=== PATIENT | female | born 1940 | race Caucasian/White ===

== ENCOUNTER → 2017-05-04 | Outpatient (CLI) | payer OTHER ==
[~2017-05-04] MED LIST: ASPIR 8181 MG PO; CALCIUM 600 +1 EAC1 PO; CENTRUM SILVER1 EAC4 PO; CO Q-10100 MG PO; ELMIRON 100 MG100 M1 PO; ESCITALOPRAM OX10 MG PO; FISH OIL 1,001000 M2 PO; GLUCOSAMINE CH1 EAC2 PO; IRON325 PO; LIPITOR 20 MG T20 M1 PO; PAROXETINE HCL20 MG PO; PROLOPRIM100 MG PO; RANITIDINE HCL300 MG PO; TOPROL XL25 MG PO; VITAMIN D1000 UNI1 PO
== END ==
LOC: RAD 11:10
DX: R06.02 Shortness of breath (principal); R79.1 Abnormal coagulation profile

== ENCOUNTER → 2017-05-22 | Outpatient (CLI) | payer OTHER | LOC: CAT 11:36 | DX: C74.90 Malignant neoplasm of unspecified part of unspecified adrenal gland (principal); D09.3 Carcinoma in situ of thyroid and other endocrine glands ==

== ENCOUNTER → 2017-12-29 | Outpatient (CLI) | payer OTHER ==
--- NOTE | ~2017-12-29 | EXE ---
[facility] [place] [address] STRESS ECHOCARDIOGRAM Name: AMA ALY Room #: REG [facility]#: [id number] Admission: 12/29/17 Attend Phys: Lukasz Flores MD Discharge: Date of : 38 Date of Service: 12/29/17 1134 Report #: [id number] THIS REPORT FOR: //name// APPROVED REPORT Study performed: 12/29/2017 10:20:34 Exam: Stress Echocardiogram Indication: Hypertension, Dyspnea Patient Location: Out-Patient Stress Nurse: Marybeth Aragon RN Status: routine Ht: 5 ft 2 in Procedure The patient underwent an Exercise Stress Test using the Jesus Manuel Protocol. Blood pressure, heart rate, and EKG were monitored. An Echocardiogram was performed by accelerator technician in four stages in quad fashion. At peak stress, four selected images were obtained and placed side by side with resting images for comparison. Stress Test Details Stress Test: Exercise stress testing was performed using a Jesus Manuel protocol. HR Resting HR: 58 bpm Max Heart Rate (APMHR): 142 bpm Max HR Achieved: 113 bpm Target HR (85% APMHR): 120 bpm % of APMHR: 79 Recovery HR: 57 bpm HR response to stress: Normal HR response to stress BP Resting BP: 144/78 mmHg Max BP: 212/78 mmHg Recovery BP: 190/78 mmHg ECG Clinical Reason for Termination: Maximal effort, Dyspnea Stress Symptoms: Dyspnea Exercise duration: 2 min sec Highest Stage Achieved: Stage 1: 1.7 mph at 10% grade. Exercise capacity: 4.6 METs [facility] [address] [place] [address] STRESS ECHOCARDIOGRAM Name: MAA ALY Room #: REG [facility]#: [id number] Admission: 12/29/17 Attend Phys: Lukasz Flores MD Discharge: Date of : 38 Date of Service: 12/29/17 1134 Report #: [id number] Overall Exercise Capacity for Age: Poor Pre-Stress Echo The resting Echocardiogram showed normal left ventricular contractility with an estimated Ejection Fraction of about 55-60%. Post-Stress Echo The stress Echocardiogram showed left ventricular contractility with an estimated Ejection Fraction of about 55-60%. Conclusion Clinical Response: Equivocal Exercise Capacity: Below Average Stress ECG Response: Equivocal Stress Echo Images: Equivocal No prior study available for comparison. Other Information Study Quality: Good <ELECTRONICALLY SIGNED> By: Adam Paz MD, FACC 12/29/17 1134 113 113 Adam Paz MD, FACC /INF
== END ==
LOC: CV 10:02
DX: R00.1 Bradycardia, unspecified (principal); R00.2 Palpitations

== ENCOUNTER 2018-01-28 06:41 | Inpatient (IN) | payer OTHER ==
[~2018-01-28] VITALS: Ht 157.5 cm; Wt 62.8 kg
--- NOTE | ~2018-01-28 | HC ---
[facility] [place] [address] CONSULTATION Name: AMA ALY Room #: 204-P [facility] IN ..#: [id number] Admission: 01/29/18 Attend Phys: Adam Paz MD, Discharge: Date of : 38 Report #: [id number] THIS REPORT FOR: //name// CC: Lukasz Paz DATE OF SERVICE: 01/29/2018 CARDIOLOGY CONSULTATION REASON FOR CONSULTATION: Symptomatic bradycardia. HISTORY OF PRESENT ILLNESS: The patient is a 77-year-old female who recently had an abnormal nuclear stress test on 01/18/2018 showing an EF of 72% and evidence of anterior wall ischemia. She underwent cardiac catheterization on 01/28/2018 and had a Resolute drug-eluting stent placed to the LAD. This procedure was without complications. However, she was noted to have frequent episodes of bradycardia down into the 30s and 40s and episodes of sinus arrest. Therefore, she has been kept in the hospital for monitoring of her heart rate and her beta em therapy has been held. She currently denies chest pain. She has some mild fatigue and shortness of breath. She denies PND or orthopnea. She denies presyncope or syncope. REVIEW OF SYSTEMS: Twelve-point review of systems was otherwise normal. PAST MEDICAL HISTORY: 1. Coronary artery disease, status post drug-eluting stent to the LAD on 01/28/2018. 2. Carotid disease. 3. Diabetes. 4. Hypertension. 5. Hyperlipidemia. 6. Chronic renal insufficiency. 7. Subclavian stenosis. FAMILY HISTORY: Noncontributory. SOCIAL HISTORY: Does not smoke. ALLERGIES: INCLUDE MORPHINE, CODEINE, ERYTHROMYCIN, AMITRIPTYLINE AND DESVENLAFAXINE. CURRENT MEDICATIONS: Include pantoprazole, Pentosan, Plavix, atorvastatin, aspirin, insulin, calcium gluconate, albuterol, Ambien, Zofran, Paxil. PHYSICAL EXAMINATION: [facility] [address] [place] [address] CONSULTATION Name: AMA ALY Room #: 204-P [facility]#: [id number] Admission: 01/29/18 Attend Phys: Adam Paz MD, Discharge: Date of : 39 Report #: [id number] VITAL SIGNS: Temperature is 36.9, pulse 47, respirations 16, blood pressure 106/38, sats are 97%. GENERAL: In no acute distress. HEENT: Oropharynx clear. NECK: Supple, no thyromegaly. HEART: Regular rate and rhythm. LUNGS: Clear to auscultation bilaterally. ABDOMEN: Soft, nontender, nondistended with no hepatosplenomegaly. EXTREMITIES: No clubbing, cyanosis or edema. LABORATORY DATA: Hemoglobin 8.9, white count 7.9, platelets 128. Sodium 143, potassium 6.8, creatinine 2.1. Repeat potassium was 4.9. ASSESSMENT: 1. Sick sinus syndrome. 2. Symptomatic bradycardia. 3. Sinus arrest. In summary, the patient is a 77-year-old with history of coronary artery disease, status post recent stenting and evidence of severe sick sinus syndrome with symptomatic bradycardia. We will monitor her heart rhythm over the weekend off beta blockers and if this does not improve, I will recommend dual chamber pacemaker implantation. I have discussed the details of the procedure including the risks, which include, but not limited to bleeding, infection, vascular damage, cardiac perforation, pneumothorax. She understands these risks and is willing to proceed. By: [id number] [id number] Chaitanya Jenkins MD /nt
--- NOTE | ~2018-01-28 | CATHLAB ---
[facility] [place] [address] INVASIVE PROCEDURE REPORT Name: AMA ALY Room #: 204-P [facility] IN .R.#: [id number] Admission: 01/28/18 Attend Phys: Adam Paz, Discharge: Date of : 38 Date of Service: 01/29/18 1141 Report #: [id number] THIS REPORT FOR: //name// APPROVED REPORT Study performed: 01/28/2018 07:25:40 Patient Details Patient Status: Out-Patient Room #: The patient is a 77 year-old female Event Personnel Adam Paz Commutator Tester, Jaimie Fulton RN RN, True Bahena RT(R)(CV) Kraig Au David Monitor Procedures Performed Right and Left Heart Cath w/or w/o Coronarie [id number] [facility] [address] Place w/wo Plasty Single LAD [id number] Indication Chest pain Procedure Narrative The Right Groin^ was infiltrated with 1% Lidocaine subcutaneous anesthesia. A Right Heart Catheterization was performed with a 7 Fr. [place] catheter and pressure were recorded. Cardiac outputs were obtained by the Thermal Dilution method. A PINNACLE 6FR Sheath #[id number] sheath was inserted into the RFA^. Coronary angiography was performed using coronary diagnostic catheters. The right coronary system was accessed and visualized with a JR4 catheter. The left coronary system was accessed and visualized with a JL4 catheter. The left ventricle was accessed and visualized with a PIGTAIL catheter. Left ventricular/Aortic Valve gradient assessed via catheter pullback. Closure device was deployed with a 6 Fr MYNXGRIP 6/7F #[id number]. The patient tolerated the procedure well and there were no complications associated with the procedure. A hematoma occurred. Intraoperative Conscious Sedation Sedation start time: 8.41 Case end Time: 9.11 Fentanyl 75 mcg Versed 1 mg Fluoro Time: 6.42 minutes Dose: DAP 3432. cGycm2 404 mGy [facility] [address] [place] [address] INVASIVE PROCEDURE REPORT Name: AMA ALY Room #: 204-P [facility] IN ..#: [id number] Admission: 01/28/18 Attend Phys: Adam Paz, Discharge: Date of : 38 Date of Service: 01/29/18 1141 Report #: [id number] Contrast Type and Amount: Visipaque 60 ml Hemodynamics The right ventricular pressure is 65/18 mmHg. The pulmonary artery pressure is 81/6 mmHg with a mean of 25 mmHg. The mean pulmonary capillary wedge pressure is 33 mmHg. The aortic pressure is 164/55 mmHg with a mean of 93 mmHg. The left ventricular pressure is 151/14 mmHg with a mean of mmHg. The cardiac output using thermo method is 3.80 L/min. PCI Technique Lesion Percutaneous coronary intervention was performed on the proximal left anterior descending artery segment. A LAUNCHER 6FR EBU 3.5 #[id number] Guide Catheter was used to engage the ostium. A Luge Wire .014 x 182CM #[id number] Interventional Guidewire was used to cross the lesion. BALLOON DILATION A Balloon catheter Sprinter OTW 2.5 x 12 #[id number] was inserted and inflated up to 6.00atm for 12seconds. Additional Inflation: 6.00atm for 13seconds. Additional Inflation: 8.00atm for 15seconds. STENT DEPLOYMENT A drug-eluting stent RESOLUTE OTW 2.75 X 12 #[id number] was inserted and inflated up to 15.00atm for 34seconds. Additional Inflation: 16.00atm for 27seconds. Conclusion #1 successful PTCA stent proximal LAD 80-90% lesion to 0% placement of a 2.75 x 12 resolute drug-eluting stent postdilated 3.0 mm TERRY-3 flow no dissection #2 left main free of disease giving rise to LAD and circumflex #3 circumflex OM nondominant moderate distribution and eccentric 40-50% mid vessel lesion #4 dominant right coronary artery moderate caliber no occlusive disease #5 left renal artery with an eccentric 40% ostial lesion #6 right renal artery with mild irregularity #7 successful right heart catheterization with hemodynamics described above Recommendations and plan will need some diuresis. We'll continue dual antiplatelet therapy at least one year. Transfer to [facility] [address] [place] [address] INVASIVE PROCEDURE REPORT Name: AMA ALY Room #: 204-P [facility] IN M.R.#: [id number] Admission: 01/28/18 Attend Phys: Adam Paz, Discharge: Date of : 38 Date of Service: 01/29/18 1141 Report #: [id number] condition Mild bradycardia we will DC beta em and observe. <ELECTRONICALLY SIGNED> By: Adam Paz MD, FACC 01/29/18 114 114 40 Adam Paz MD, FACC /INF
--- NOTE | ~2018-01-28 | EKG ---
[address] [address] ELECTROCARDIOGRAM REPORT Name: AMA ALY Room #: 204- [facility] IN M.R.#: [id number] Admission: 01/29/18 Attend Phys: Adam Paz MD, Discharge: Date of : 39 Report #: [id number] THIS REPORT FOR: //name// [facility] Test Date: 2018-01-29 Test Time: 06:56:01 Pat Name: AMA ALY Department: Room: 204 Gender: F Statistician Applied: BILLY : 1940 Requested By: Adam Paz Order Number: [id number] MD: Kiran Terry Measurements Intervals [place] Rate: 66 P: 54 FL: 163 QRS: 12 QRSD: 89 T: 52 QT: 420 QTc: 441 Interpretive Statements Sinus rhythm Atrial premature complex No previous ECG available for comparison Electronically Signed On 01-29-2018 12:59:13 CDT by Kiran Terry [email or web address] <ELECTRONICALLY SIGNED> By: Kiran Terry MD, FACC 01/29/18 1259 0656 0656 Kiran Terry MD, FACC /EPI
--- NOTE | ~2018-01-28 | D ---
[facility] [place] [address] DISCHARGE SUMMARY Name: AMA ALY Room #: 204-P [facility] IN M.R.#: [id number] Admission: 01/29/18 Attend Phys: Adam Paz MD, Discharge: Date of : 39 Report #: [id number] THIS REPORT FOR: //name// CC: Lukasz Flores MD [facility] COURSE: The patient is a 77-year-old female who was initially admitted for an abnormal stress test and anginal symptoms. Went to the catheterization lab where she underwent successful PTCA stent of a 90% proximal LAD lesion. A 2.75 x 12 Resolute drug-eluting stent was placed, postdilated 3.0 mm. She did well, but then subsequently had significant bradydysrhythmias and periods of significant pauses 4-5 seconds, although was not syncopal with this, but somewhat lightheaded. There had been some occurrence of this, which she had not related prior to the stent placement. Had electrophysiology service see her. Dr. Jenkins placed a dual chamber pacemaker in her without event. This is functioning appropriately today. Chest x-ray is unremarkable. She feels well. She is up and ambulating. She does have her instructions regarding the pacemaker. She will need dual antiplatelet therapy for 6-12 months, we will evaluate. She will restart her Edarbyclor, which we needed for her refractory hypertension, Bystolic, atorvastatin 20, Colace, Protonix, Paxil. No lifting with her upper extremity as instructed by EP. No lying in tub, Jacuzzi or briceno for a week. No MRI or dental work for 3 months. Her Edarbyclor dose is 40/12.5. DISCHARGE DIAGNOSES: 1. Coronary artery disease, successful percutaneous transluminal coronary angioplasty stent of proximal left anterior descending, subclavian stenosis, hypertension, hypercholesterolemia, chronic kidney disease, intermittent heart block with bradydysrhythmia, status post permanent pacemaker at this visit. 2. Sleep apnea. 3. Mild pulmonary hypertension. Thank you for asking me to assist in the care of this patient. By: 0946 1149 Adam Paz MD, FACC /nt
--- NOTE | ~2018-01-28 | P ---
[facility] [place] [address] PROCEDURE REPORT Name: AMA ALY Room #: 204-P [facility] IN M.R.#: [id number] Admission: 01/29/18 Attend Phys: Adam Paz MD, Discharge: Date of : 39 Report #: [id number] THIS REPORT FOR: //name// CC: Lukasz Paz DATE OF SERVICE: 02/01/2018 PACEMAKER IMPLANTATION PREOPERATIVE DIAGNOSES: 1. Sick sinus syndrome. 2. Symptomatic bradycardia. PROCEDURE PERFORMED: Dual chamber pacemaker implantation. HISTORY: The patient is a 77-year-old female who came in for an elective coronary intervention, status post stent placement. Preprocedure, she was noted to have sinus bradycardia in the 30s and 40s. Her beta blockers were stopped over the weekend and she continued to have sinus bradycardia as well as sinus arrest with 5- to 6-second pauses. She requires beta em therapy for her coronary artery disease and therefore is here for dual chamber pacemaker implantation. ANESTHESIA: The patient underwent MAC anesthesia with no anesthesia related complications. DESCRIPTION OF PROCEDURE: The patient underwent informed consent. Discussed the details of the procedure including the risks, which include, but not limited to bleeding, infection, vascular damage, cardiac perforation, pneumothorax. She received IV vancomycin prior to the procedure and underwent a venogram showing patency of left axillary vein. Next, I injected lidocaine below the level of left clavicle. Incision was made, pocket was created over the prepectoral fascia and access was obtained twice to left axillary vein using the extrathoracic approach with sheaths positioned using the modified Seldinger technique. Under fluoroscopy, I placed a lead into the right ventricular apex and right atrial appendage both with adequate pacing and sensing thresholds. The leads were sutured to the prepectoral fascia and then the device was connected. The pocket was irrigated with vancomycin. The pocket was closed in 3 layers. Surgical glue was placed to the outer skin layer. The patient awoke neurologically hemodynamically intact. No complications and no significant bleeding. The pacemaker was programmed to the DDDR 60-130 mode. The pacemaker was a [employer] model #YI6904, serial #[id number]. The atrial lead was a [employer], model #2088TC, 46 cm, serial #[id number]. This lead demonstrated a P-wave of 2.4 millivolts, pacing impedance of 540 ohms and a pacing threshold of 1 volt at 0.4 milliseconds. The RV lead was [employer] [facility] [address] [place] [address] PROCEDURE REPORT Name: AMA ALY Room #: 204-P [facility]#: [id number] Admission: 01/29/18 Attend Phys: Adam Paz MD, Discharge: Date of : 39 Report #: [id number] model #2088TC, 52 cm, serial #[id number] with a R-wave of greater than 12 millivolts, pacing impedance of 440 ohms and a pacing threshold of 0.5 volts at 0.4 milliseconds. CONCLUSIONS: 1. Successful dual-chamber pacemaker implantation. 2. Satisfactory atrial and ventricular pacing and sensing thresholds. By: 1629 0039 Chaitanya Jenkins MD /nt
--- NOTE | ~2018-01-28 | HC ---
[facility] [place] [address] CONSULTATION Name: AMA ALY Room #: 204-P [facility] IN M.R.#: [id number] Admission: 01/29/18 Attend Phys: Aadm Paz MD, Discharge: Date of : 39 Report #: [id number] THIS REPORT FOR: //name// CC: Lukasz Paz DATE OF SERVICE: 01/28/2018 REASON FOR CONSULTATION: Elevated creatinine. HISTORY OF PRESENT ILLNESS: The patient was seen and examined on , 01/28/2018. This is a late dictation. The patient is a 77-year-old with past medical history of hypertension, coronary artery disease. She was admitted yesterday for an elective catheterization and had an LAD stent. Her history started couple of weeks ago when she had abnormal nuclear scan. She was sent to Dr. Paz. Based on the nuclear scan finding, decision was made to proceed with the cardiac catheterization. Creatinine was elevated at 2.2. I was consulted to manage her chronic kidney disease. In terms of renal function, she tells me that she sees Dr. Lukasz Flores and was told that she has stage 3 chronic kidney disease, but she does not recall her exact values. She denies nonsteroidal anti-inflammatory medication. She has complicated past medical history including what was described as mixed connective tissue disorder back in the 2000 era. She was also diagnosed to have right adrenal mass and this was resected few years ago. She was told that this was a benign mass. PAST MEDICAL HISTORY: 1. Hypertension. 2. Coronary artery disease. 3. Ovarian cystectomy. 4. Questionable history of mixed connective tissue disorder. 5. Right adrenalectomy. 6. Ovarian cystectomy. 7. Appendectomy. 8. Recent cardiac catheterization. 9. Hypertension. 10. Chronic kidney disease. MEDICATIONS: Reviewed and reconciled with the patient. FAMILY HISTORY: Significant for hypertension. REVIEW OF SYSTEMS: GENERAL: No fever or chills. CARDIOVASCULAR: Occasional dyspnea on exertion. PULMONARY: No cough or hemoptysis. GASTROINTESTINAL: No nausea or vomiting. [facility] [address] [place] [address] CONSULTATION Name: AMA ALY Room #: 204-P [facility] IN M.R.#: [id number] Admission: 01/29/18 Attend Phys: Adam Paz MD, Discharge: Date of : 39 Report #: [id number] GENITOURINARY: No active urinary symptoms. MUSCULOSKELETAL: Occasional arthralgias and back pain. SKIN: No rash or ulcerations. SOCIAL HISTORY: She denies drug or alcohol abuse. PHYSICAL EXAMINATION: GENERAL: Alert, oriented. VITAL SIGNS: Blood pressure was marginally elevated at 170/80. She is afebrile. HEAD AND NECK: No jugular venous distention, no bruit, no thyromegaly. CHEST: Decreased air entry bilaterally. CARDIOVASCULAR: Regular, with no rub. ABDOMEN: Soft, nontender. LOWER EXTREMITIES: No edema. LABORATORY DATA: Laboratory values reviewed. Creatinine as of yesterday was elevated at 2.2. ASSESSMENT, IMPRESSION, PLAN: 1. Coronary artery disease, status post LAD stent. 2. Elevated creatinine with unknown baseline, likely chronic kidney disease. 3. Hypertension. 4. Remote history of right adrenalectomy. 5. Questionable history of mixed connective tissue disorder based on elevated PRINCE. 6. We need to obtain the patient's medical records from her primary care physician. This is to establish a baseline for her. 7. We will initiate the acute kidney injury, chronic kidney disease workup. 8. Elevate urine protein to creatinine ratio. 9. Ultrasound of both kidneys. 10. Keep on the IV fluid. 11. We will hold some of her medications for now. 12. Repeat labs in the morning. 13. Watch electrolytes. 14. Watch urine output. 15. We will continue to follow along. <ELECTRONICALLY SIGNED> By: Guera Magana MD 01/31/18 1521 0550 1051 Guera Magana MD /nt
--- NOTE | ~2018-01-28 | EKG ---
[address] [address] ELECTROCARDIOGRAM REPORT Name: AMA ALY Room #: 204- ADM IN M.R.#: [id number] Admission: 01/29/18 Attend Phys: Adam Paz MD, Discharge: Date of : 38 Report #: [id number] THIS REPORT FOR: //name// [facility] Test Date: 2018-01-28 Test Time: 11:08:09 Pat Name: AMA ALY Department: Room: 204 Gender: F Industrial Relations Specialist: Madalyn FRANCO : 1940 Requested By: Adam Paz Order Number: [id number] MD: Kiran Terry Measurements Intervals [place] Rate: 39 P: 52 [place]: 163 QRS: 14 QRSD: 89 T: 24 QT: 515 QTc: 415 Interpretive Statements Sinus bradycardia Otherwise normal tracing No previous ECG available for comparison Electronically Signed On 01-29-2018 12:46:25 CDT by Kiran Terry [email or web address] <ELECTRONICALLY SIGNED> By: Kiran Terry MD, [facility] 01/29/18 1246 1108 1108 Kiran Terry MD, FACC /EPI
[2018-01-28 07:07] VITALS: BP 170/53
[2018-01-28] MEDS ORDERED: LOPRESSOR25 PO (07:18)
[2018-01-28] MEDS ORDERED: ZANTAC300 MG PO (07:21)
[2018-01-28] MEDS ORDERED: PRILOSEC 20 MG20 MG PO (07:22)
[2018-01-28] MEDS ORDERED: VISION FORMULA1 EACH PO (07:24)
[2018-01-28 07:26] LABS: HEMATOCRIT 34.3 % (37.0-47.0); HEMOGLOBIN 11.4 gm/dL (12.0-15.0); MCH 32.7 pg (26.0-34.0); MCHC 33.3 g/dL (28.0-37.0); MCV 98.3 fL (80.0-100.0); RBC 3.49 mil/uL (4.20-5.00); RDW 12.8 % (10.5-14.5); WBC 7.2 thou/uL (4.0-11.0)
[2018-01-28] MEDS ORDERED: EDARBYCLOR 40-1 EACH PO (07:26)
[2018-01-28] MEDS ORDERED: BYSTOLIC 5 MG5 M1 PO (07:28)
[2018-01-28 07:40] LABS: CALCIUM 9.6 mg/dL (8.5-10.1); CREATININE 2.2 mg/dL (0.6-1.0); POTASSIUM 5.9 mmol/L (3.5-5.1)
[2018-01-28 15:32] VITALS: BP 102/56
[2018-01-28 19:14] LABS: URINE BILIRUBIN NEGATIVE (Negative); URINE BLOOD 3+ (Negative); URINE CLARITY CLEAR; URINE COLOR YELLOW; URINE GLUCOSE-RANDOM* NEGATIVE (Negative); URINE KETONES NEGATIVE (Negative); URINE LEUKOCYTES NEGATIVE (Negative); URINE NITRITE NEGATIVE (Negative); URINE PROTEIN (DIPSTICK) NEGATIVE (Negative); URINE SPECIFIC GRAVITY 1.015 (1.005-1.035); URINE UROBILINOGEN 0.2 E.U./dl (0.2-1.0)
[2018-01-28 19:23] LABS: URINE CREATININE-RANDOM* 136.8 mg/dL; URINE PROTEIN-RANDOM* 9.2 mg/dL (<11.9)
[2018-01-28 19:24] LABS: BACTERIA None Seen /HPF (None Seen); COARSE GRANULAR CASTS 0-3 Few /LPF (None Seen); CRYSTALS None Seen /LPF (None Seen); HYALINE CASTS >10 Many /LPF (None Seen); SQUAMOUS 0-3 Few /LPF (0-3); URINE WBC 6-15 Few /HPF (0-5)
[2018-01-28 20:30] VITALS: BP 122/33
[2018-01-29 03:26] LABS: HEMATOCRIT 26.9 % (37.0-47.0); MCH 32.9 pg (26.0-34.0); MCV 99.7 fL (80.0-100.0); RBC 2.7 mil/uL (4.20-5.00); RDW 12.7 % (10.5-14.5); WBC 7.9 thou/uL (4.0-11.0)
[2018-01-29 03:44] LABS: HEMOGLOBIN 8.9 gm/dL (12.0-15.0)
[2018-01-29 03:47] LABS: ANION GAP 8 mmol/L (7-16); BUN 38 mg/dL (7-18); CALCIUM 8.5 mg/dL (8.5-10.1); CHLORIDE 112 mmol/L (98-107); CO2 23 mmol/L (21-32); CREATININE 2.1 mg/dL (0.6-1.0); GLUCOSE 96 mg/dL (74-106); SODIUM 143 mmol/L (136-145); TROPONIN-I < 0.04 ng/mL (<0.06)
[2018-01-29 03:49] LABS: POTASSIUM 6.8 mmol/L (3.5-5.1)
[2018-01-29 04:45] VITALS: BP 117/37
[2018-01-29 07:29] VITALS: BP 120/35
[2018-01-29 11:44] VITALS: BP 106/38
[2018-01-29 15:59] VITALS: BP 122/47
[2018-01-29 20:45] VITALS: BP 114/46
[2018-01-30 00:30] VITALS: BP 136/45
[2018-01-30 04:05] LABS: ALBUMIN 2.9 g/dL (3.4-5.0); CALCIUM 8.3 mg/dL (8.5-10.1); CREATININE 1.6 mg/dL (0.6-1.0); PHOSPHORUS 4.2 mg/dL (2.5-4.9); POTASSIUM 4.4 mmol/L (3.5-5.1)
[2018-01-30 04:30] VITALS: BP 110/41
[2018-01-30 08:22] VITALS: BP 112/36
[2018-01-30 12:32] VITALS: BP 110/42
[2018-01-30 17:34] VITALS: BP 114/58
[2018-01-30 20:30] VITALS: BP 125/47
[2018-01-31 03:26] LABS: ALBUMIN 2.8 g/dL (3.4-5.0); CALCIUM 8.2 mg/dL (8.5-10.1); CREATININE 1.4 mg/dL (0.6-1.0); PHOSPHORUS 3.6 mg/dL (2.5-4.9); POTASSIUM 3.7 mmol/L (3.5-5.1)
[2018-01-31 04:10] VITALS: BP 121/48
[2018-01-31 07:16] VITALS: BP 128/49
[2018-01-31 11:29] VITALS: BP 128/34
[2018-01-31 15:35] VITALS: BP 144/58
[2018-01-31 19:37] VITALS: BP 153/58
[2018-02-01 02:55] LABS: CALCIUM 8.3 mg/dL (8.5-10.1); CREATININE 1.4 mg/dL (0.6-1.0); PHOSPHORUS 4.4 mg/dL (2.5-4.9); POTASSIUM 3.8 mmol/L (3.5-5.1)
[2018-02-01 04:56] VITALS: BP 159/62
[2018-02-01 07:14] VITALS: BP 128/59
[2018-02-01 10:22] LABS: HEMATOCRIT 24.4 % (37.0-47.0); HEMOGLOBIN 8.2 gm/dL (12.0-15.0); MCH 32.8 pg (26.0-34.0); MCHC 33.5 g/dL (28.0-37.0); MCV 97.9 fL (80.0-100.0); RBC 2.49 mil/uL (4.20-5.00); RDW 12.5 % (10.5-14.5); WBC 5.4 thou/uL (4.0-11.0)
[2018-02-01 10:32] LABS: APTT 27.6 Seconds (24.5-32.8); CALCIUM 8.6 mg/dL (8.5-10.1); CREATININE 1.3 mg/dL (0.6-1.0); INR 1.1; POTASSIUM 3.7 mmol/L (3.5-5.1); PROTIME 10.8 Seconds (9.3-11.4)
[2018-02-01 11:29] VITALS: BP 158/52
[2018-02-01 12:10] LABS: KAPPA/LAMBDA RATIO 1.12 (0.26-1.65); LAMBDA FREE LIGHT CHAINS 20.6 mg/L (5.7-26.3)
[2018-02-01 17:09] LABS: GLOBULIN TOTAL 2.4 g/dL (2.2-3.9); M-SPIKE Not Observed g/dL (Not Observed)
[2018-02-01 17:35] VITALS: BP 134/64
[2018-02-01 20:38] VITALS: BP 148/49
[2018-02-02 03:49] LABS: POTASSIUM 3.7 mmol/L (3.5-5.1)
[2018-02-02 03:50] LABS: CALCIUM 8.2 mg/dL (8.5-10.1); CREATININE 1.3 mg/dL (0.6-1.0); PHOSPHORUS 4.3 mg/dL (2.5-4.9)
[2018-02-02 05:15] VITALS: BP 146/60
[2018-02-02 07:31] VITALS: BP 150/45
[2018-02-02] MEDS ORDERED: CLOPIDOGREL75 MG PO (07:50)
[2018-02-02] MEDS ORDERED: ASPIRIN325 PO (07:50)
[2018-02-02 09:49] VITALS: BP 150/45
[2018-02-02 11:23] VITALS: BP 142/44
== END 2018-02-02 17:24 | disposition home or self-care (01) | DRG 242 ==
LOC: CATH 06:41 → 2N 10:09 → CATH 14:29 → 2N 01-29 11:55
PROVIDERS: Hospitalist; Internal Medicine Cardiovascular Disease; Internal Medicine Nephrology
PROC: B2111ZZ Fluoroscopy of Multiple Coronary Arteries using Low Osmolar Contrast (ICD-10-PCS; principal; 2018-01-29)
PROC: 027034Z Dilation of Coronary Artery, One Artery with Drug-eluting Intraluminal Device, Percutaneous Approach (ICD-10-PCS; principal; 2018-01-29)
PROC: 4A023N8 Measurement of Cardiac Sampling and Pressure, Bilateral, Percutaneous Approach (ICD-10-PCS; principal; 2018-01-29)
PROC: 02H63JZ Insertion of Pacemaker Lead into Right Atrium, Percutaneous Approach (ICD-10-PCS; 2018-02-01)
PROC: 02HK3JZ Insertion of Pacemaker Lead into Right Ventricle, Percutaneous Approach (ICD-10-PCS; 2018-02-01)
PROC: 0JH606Z Insertion of Pacemaker, Dual Chamber into Chest Subcutaneous Tissue and Fascia, Open Approach (ICD-10-PCS; 2018-02-01)
DX: I49.5 Sick sinus syndrome (principal); N17.0 Acute kidney failure with tubular necrosis; E87.0 Hyperosmolality and hypernatremia; N18.3 Chronic kidney disease, stage 3 (moderate); I25.10 Atherosclerotic heart disease of native coronary artery without angina pectoris; I12.9 Hypertensive chronic kidney disease with stage 1 through stage 4 chronic kidney disease, or unspecified chronic kidney disease; E78.5 Hyperlipidemia, unspecified; E87.5 Hyperkalemia; D64.9 Anemia, unspecified; I77.1 Stricture of artery; I27.20 Pulmonary hypertension, unspecified; Z90.49 Acquired absence of other specified parts of digestive tract; Z79.4 Long term (current) use of insulin; Z79.02 Long term (current) use of antithrombotics/antiplatelets; Z79.899 Other long term (current) drug therapy; Z88.1 Allergy status to other antibiotic agents; Z88.5 Allergy status to narcotic agent; Z88.8 Allergy status to other drugs, medicaments and biological substances; Z82.49 Family history of ischemic heart disease and other diseases of the circulatory system
CPT/HCPCS: 10081; 62110; 62900; 70005

== ENCOUNTER → 2018-10-06 | Outpatient (CLI) | payer OTHER ==
[~2018-10-06] VITALS: Ht 157.5 cm; Wt 63.5 kg
[~2018-10-06] MED LIST changes: +ASPIRIN325 PO; +ATORVASTATIN CA40 MG PO; +BYSTOLIC 5 MG5 M1 PO; +CLOPIDOGREL75 MG PO; +EDARBYCLOR 40-1 EACH PO; +LOPRESSOR25 PO; +NORVASC5 MG PO; +OCUVITE SOFTGE1 EAC1 PO; +PLAVIX 75 MG TA75 M1 PO; +PRILOSEC 20 MG20 MG PO; +VISION FORMULA1 EACH PO; +ZANTAC300 MG PO
--- NOTE | 2018-10-11 08:16 | P ---
[facility] [place] [address] PROCEDURE REPORT Name: AMA ALY [facility] [id number] Admission: 10/06/18 ������������������ Attend Phys: Anthony Castrejon Discharge: ������������������ Date of : 38 Report #: [id number] THIS REPORT FOR: //name// CC: Anthony Flores MD DATE OF SERVICE: 10/06/2018 PROCEDURE PERFORMED: Colonoscopy with biopsies. HISTORY OF PRESENT ILLNESS: The patient is a 77-year-old female with a history of polyps, a large polyp near the hepatic flexure around 75 cm was noted on previous colonoscopies recently in 2015, which showed a tubular adenoma negative for high-grade dysplasia. The area was tattooed. Several other tubular adenomatous polyps were also removed in 2015. She underwent a repeat colonoscopy a year later on 10/03/2016 and there appeared to be small amount of recurrence at that previous polypectomy site at 75 cm. Biopsies were obtained again showing tubular adenoma, no dysplasia. We had a discussion in the office after that colonoscopy to decide whether to continue recurrent surveillance colonoscopies versus consider a possible right hemicolectomy. At that time, the patient wanted to think about it and did not want to proceed with surgery later. She now presents for routine followup. She denies any symptoms in general. No family history of colon cancer. DESCRIPTION OF PROCEDURE: The risks and benefits of the procedure were explained to the patient those risks including but not limited to bleeding, perforation and the risk of sedation. She understood these risks and gave informed consent. Sedation was given using propofol per anesthesia. Next, a digital rectal exam was initially performed, which was normal. Next, using a standard Olympus colonoscope, the scope was placed in the patient's anus and advanced under direct vision to the cecum. The overall prep was excellent. The cecum and ileocecal valve were normal in appearance. The ascending colon was normal. At the hepatic flexure, once again the previous tattoo site was noted. There does appear to be some small areas of adenomatous tissue. These were removed by cold forceps. Otherwise normal transverse, descending and sigmoid colon. The rectal mucosa was normal. On retroflexion, no significant abnormalities were noted. The scope was then withdrawn and the procedure terminated. The patient tolerated the procedure well. IMPRESSION: 1. Previous polypectomy site near the hepatic flexure, possible small amount of recurrence of adenomatous tissue. This was removed today by cold forceps. 2. Otherwise, normal colonoscopy. RECOMMENDATIONS: [address] [address] PROCEDURE REPORT Name: AMA ALY Room #: [facility]#: [id number] Admission: 10/06/18 ������������������ Attend Phys: Anthony Castrejon Discharge: ������������������ Date of : 38 Report #: [id number] 1. Await biopsy results. 2. Again consider a repeat colonoscopy on a frequent basis versus surgical options. Thank you for allowing me to participate in her care. ��������������������������������������������� <ELECTRONICALLY SIGNED> ���������������������������������������� By: Anthony Jara MD ��������������������������������������������� 10/11/18 0816 1256 2124 Anthony Jara MD /nt
--- NOTE | 2018-10-11 13:07 | PATH ---
[facility] [address] [place] [address] PATHOLOGY RPT PROCEDURE Name: AMA DAWN Room #: REG [facility] MByron.#: [id number] ������������������ Admission: 10/06/18 ������������������ Date of : 39 Discharge: Report #: [id number] Path Case #: [id number] [facility] Accession Number: [id number] . 01 Material submitted: . POLYP AT PREVIOUS POLYPECTOMY SITE-HEPATIC FLEXURE . 01 Clinical history: . Hx polyp, diarrhea . 02 Diagnosis: Polyp, at previous polypectomy site hepatic flexure, endoscopic biopsy: - Fragments of tubular adenoma. - Negative for high grade dysplasia. (IUV/db; 10/08/2018) LBQ/10/08/2018 . 02 Electronically signed: . Suzi Prajapati MD, Pathologist NPI- [id number] . 01 Gross description: . Received in formalin labeled "Ama Dawn, polyp at prev polypectomy site-hepatic flexure," are multiple segments of melara-brown soft tissue measuring 1.8 x 0.7 x 0.2 cm in aggregate dimensions and ranging from 0.1 to 0.3 cm in maximum dimension. The specimen is submitted entirely in cassette A1. (DAC; 10/07/2018) XDC/XDC . 02 Pathologist provided ICD-10: D12.3 . 02 CPT . 676611 Specimen Comment: A courtesy copy of this report has been sent to Specimen Comment: [phone], . Specimen Comment: Report sent to / DR FLORES Specimen Comment: A duplicate report has been generated due to demographic updates. Performed at: 01 [place] [id number] [id number] MD Jack Reid MD Phone: [phone] Performed at: [address] [id number] [address] [address] PATHOLOGY RPT PROCEDURE Name: AMA DAWN Room #: REG [facility] Ames#: [id number] ������������������ Admission: 10/06/18 ������������������ Date of : 39 Discharge: Report #: [id number] Path Case #: [id number] MD Suzi Prajapati MD Phone: [phone]
== END | disposition home or self-care (01) ==
LOC: GI 09:13
DX: Z09 Encounter for follow-up examination after completed treatment for conditions other than malignant neoplasm (principal); Z86.010 Personal history of colon polyps; D12.3 Benign neoplasm of transverse colon; K63.89 Other specified diseases of intestine; I12.9 Hypertensive chronic kidney disease with stage 1 through stage 4 chronic kidney disease, or unspecified chronic kidney disease; E11.22 Type 2 diabetes mellitus with diabetic chronic kidney disease; N18.2 Chronic kidney disease, stage 2 (mild); F32.9 Major depressive disorder, single episode, unspecified; I73.9 Peripheral vascular disease, unspecified; E78.5 Hyperlipidemia, unspecified; G47.33 Obstructive sleep apnea (adult) (pediatric); F41.9 Anxiety disorder, unspecified; M19.90 Unspecified osteoarthritis, unspecified site; D64.9 Anemia, unspecified; Z98.890 Other specified postprocedural states; Z90.49 Acquired absence of other specified parts of digestive tract; Z87.891 Personal history of nicotine dependence; Z95.5 Presence of coronary angioplasty implant and graft; Z95.0 Presence of cardiac pacemaker; Z98.41 Cataract extraction status, right eye; Z79.899 Other long term (current) drug therapy; Z98.42 Cataract extraction status, left eye
CPT/HCPCS: 62110; 62900

== ENCOUNTER → 2019-12-13 | Outpatient (CLI) | payer OTHER | LOC: SJCVC 13:42 | DX: Z45.018 Encounter for adjustment and management of other part of cardiac pacemaker (principal); R00.1 Bradycardia, unspecified; R94.31 Abnormal electrocardiogram [ECG] [EKG]; I25.10 Atherosclerotic heart disease of native coronary artery without angina pectoris; I10 Essential (primary) hypertension; E78.00 Pure hypercholesterolemia, unspecified; M54.5 Low back pain; G89.29 Other chronic pain; I77.1 Stricture of artery; E11.40 Type 2 diabetes mellitus with diabetic neuropathy, unspecified; K21.9 Gastro-esophageal reflux disease without esophagitis; Z82.49 Family history of ischemic heart disease and other diseases of the circulatory system; Z79.82 Long term (current) use of aspirin; Z79.899 Other long term (current) drug therapy ==

== ENCOUNTER → 2020-04-25 | Outpatient (CLI) | payer OTHER | LOC: SJCVCIMAG 08:40 | PROVIDERS: ATTEND Internal Medicine Cardiovascular Disease | DX: I25.10 Atherosclerotic heart disease of native coronary artery without angina pectoris (principal); I10 Essential (primary) hypertension; E78.5 Hyperlipidemia, unspecified; Z79.82 Long term (current) use of aspirin; Z79.899 Other long term (current) drug therapy ==

== ENCOUNTER → 2020-05-08 | Outpatient (CLI) | payer OTHER | LOC: SJCVC 10:05 | PROVIDERS: ATTEND Internal Medicine Cardiovascular Disease | DX: Z45.018 Encounter for adjustment and management of other part of cardiac pacemaker (principal); R94.31 Abnormal electrocardiogram [ECG] [EKG]; I49.5 Sick sinus syndrome; I10 Essential (primary) hypertension; E78.00 Pure hypercholesterolemia, unspecified; Z79.899 Other long term (current) drug therapy ==

== ENCOUNTER → 2020-09-28 | Outpatient (CLI) | payer OTHER ==
[~2020-09-28] MED LIST changes: +HYDROXYZINE HCL10 M2 PO; +PEPCID40 MG PO; +PRESERVISION A1 EAC2 PO; +ZESTRIL10 MG PO
== END ==
LOC: LAB 07:50
PROVIDERS: ATTEND Specialist
DX: Z01.812 Encounter for preprocedural laboratory examination (principal); Z20.822 Contact with and (suspected) exposure to COVID-19

== ENCOUNTER → 2020-10-03 | Outpatient (CLI) | payer OTHER ==
[~2020-10-03] VITALS: Ht 160 cm; Wt 62.6 kg
--- NOTE | 2020-10-04 13:16 | P ---
[facility] [place] [address] PROCEDURE REPORT Name: AMA ALY Room #: REG [facility].#: [id number] Admission: 10/03/20 Attend Phys: Anthony Castrejon Discharge: Date of : 38 Report #: [id number] THIS REPORT FOR: cc: Lukasz Flores MD, Eric K. MD McElhinney, Christian C. MD ~ DATE OF SERVICE: 10/03/2020 PROCEDURE PERFORMED: Colonoscopy with biopsies. 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 The area has been tattooed. She is here for routine 2-year followup. No family history of colon cancer. She has been reporting recently loose stools and diarrhea; however, denies any blood in her stools. DESCRIPTION OF PROCEDURE: The risks and benefits of the procedure were explained to the patient, those risks including but not limited to bleeding, perforation and the risk of sedation. She understood these risks and gave informed consent. Sedation was given using propofol per anesthesia. Next, a digital rectal exam was initially performed, which was normal. Next, using a standard Olympus colonoscope, the scope was placed in the patient's anus and advanced under direct vision into the sigmoid colon, at which point I was unable to advance the scope through a tight turn; therefore, the scope was removed and a pediatric Olympus colonoscope was able to advance the scope through this area. Scope was advanced to the cecum. The overall prep was good. The cecum and ileocecal valve were normal in appearance. The ascending colon was normal. At the hepatic flexure, the previous tattoo and polypectomy site was noted. No obvious new polyp tissue was noted; however, biopsies were obtained. Also obtained were random biopsies today to rule out the possibility of microscopic colitis. The transverse, descending and sigmoid colon were normal. The rectal mucosa was normal. On retroflexion, no abnormalities were noted. The scope was then withdrawn and the procedure terminated. The patient tolerated the procedure well. IMPRESSION: 1. Previous polypectomy site noted at hepatic flexure. No obvious new polyp tissue noted. Biopsies were obtained. 2. Otherwise, normal colonoscopy. RECOMMENDATIONS: Await biopsy results. If no evidence of adenomatous tissue from previous polypectomy site, consider observing at this point. [address] [address] PROCEDURE REPORT Name: AMA ALY Room #: REG [facility] Ames#: [id number] Admission: 10/03/20 Attend Phys: Anthony Castrejon Discharge: Date of : 38 Report #: [id number] Thank you for allowing me to participate in her care. <ELECTRONICALLY SIGNED> By: Anthony Jara MD 10/04/20 1316 1151 1234 Anthony Jara MD /katie
--- NOTE | 2020-10-08 23:06 | PATH ---
[facility] [place] [address] [place] [address] PATHOLOGY RPT PROCEDURE Name: AMA DAWN Room #: REG Jerem[facility] Jackson.#: [id number] Admission: 10/03/20 Date of : 38 Discharge: Report #: [id number] Path Case #: [id number] [facility] Accession Number: [id number] . 01 Material submitted: . PART A: colon - RANDOM COLON BIOPSY PART B: colon - PREVIOUS POLYPECTOMY SITE BIOPSY . 02 Diagnosis: A. Large bowel "random", endoscopic biopsy: - Large bowel mucosa without significant pathologic alteration. - Negative for features of microscopic colitis, active inflammation, architectural distortion, granulomatous inflammation, dysplasia, and malignancy. . B. Large bowel "previous polypectomy site", biopsy: - Large bowel mucosa without significant pathologic alteration. . (RAAD:mary ellen; 10/05/2020) TC 10/08/20208 Local . 02 Electronically signed: . Opal King MD, Pathologist NPI- [id number] . 01 Gross description: . A. The specimen is received in formalin, labeled "Ama Dawn, random colon biopsy, R/O microscopic colitis". Received are three segments of pale melara soft tissue ranging in size from 0.3 to 0.5 cm in maximum dimensions. The specimen is submitted entirely in cassette A1. . B. The specimen is received in formalin, labeled "Ama aDwn, previous polypectomy site biopsy". Received are three segments of pale melara soft tissue ranging in size from 0.1 to 0.3 cm in maximum dimensions. The specimen is submitted entirely in cassette B1. (CAA; 10/04/2020) QAC/QAC 10/04/2020 1054 Local . 02 Pathologist provided ICD-10: Z86.010 . 02 CPT . 771192, 605828 Specimen Comment: A courtesy copy of this report has been sent to [phone] Specimen Comment: Report sent to / Performed at: 01 [place] [address] PATHOLOGY RPT PROCEDURE Name: AMA DAWN Room #: REG MICHELLE Ames#: [id number] Admission: 10/03/20 Date of : 38 Discharge: Report #: [id number] Path Case #: [id number] [address] [id number] MD Kranthi Lynne MD Phone: [phone] Performed at: [address] [id number] MD Kevin Lopez MD Phone: [phone]
== END | disposition home or self-care (01) ==
LOC: GI 09:33
PROVIDERS: ATTEND Specialist
DX: R19.7 Diarrhea, unspecified (principal); I12.9 Hypertensive chronic kidney disease with stage 1 through stage 4 chronic kidney disease, or unspecified chronic kidney disease; E11.22 Type 2 diabetes mellitus with diabetic chronic kidney disease; N18.30 Chronic kidney disease, stage 3 unspecified; E78.5 Hyperlipidemia, unspecified; I25.10 Atherosclerotic heart disease of native coronary artery without angina pectoris; I73.9 Peripheral vascular disease, unspecified; F32.9 Major depressive disorder, single episode, unspecified; F41.9 Anxiety disorder, unspecified; G47.30 Sleep apnea, unspecified; K21.9 Gastro-esophageal reflux disease without esophagitis; Z86.010 Personal history of colon polyps; Z98.890 Other specified postprocedural states; Z79.899 Other long term (current) drug therapy; Z87.891 Personal history of nicotine dependence; Z95.0 Presence of cardiac pacemaker; Z90.49 Acquired absence of other specified parts of digestive tract; Z88.8 Allergy status to other drugs, medicaments and biological substances; Z88.6 Allergy status to analgesic agent
CPT/HCPCS: 62110; 62900

== ENCOUNTER → 2021-04-01 | Outpatient (CLI) | payer OTHER | LOC: SJCVC 13:16 | PROVIDERS: ATTEND Internal Medicine Cardiovascular Disease | DX: I25.10 Atherosclerotic heart disease of native coronary artery without angina pectoris (principal); I49.5 Sick sinus syndrome; I65.23 Occlusion and stenosis of bilateral carotid arteries; E78.00 Pure hypercholesterolemia, unspecified; I10 Essential (primary) hypertension; E11.40 Type 2 diabetes mellitus with diabetic neuropathy, unspecified; G47.34 Idiopathic sleep related nonobstructive alveolar hypoventilation; Z79.899 Other long term (current) drug therapy; Z95.0 Presence of cardiac pacemaker; Z88.5 Allergy status to narcotic agent; Z88.1 Allergy status to other antibiotic agents; Z88.8 Allergy status to other drugs, medicaments and biological substances ==

== ENCOUNTER → 2021-05-09 | Outpatient (CLI) | payer OTHER | LOC: SJCVC 13:22 | PROVIDERS: ATTEND Internal Medicine Cardiovascular Disease | DX: R00.1 Bradycardia, unspecified (principal); I25.10 Atherosclerotic heart disease of native coronary artery without angina pectoris; F41.9 Anxiety disorder, unspecified; E11.40 Type 2 diabetes mellitus with diabetic neuropathy, unspecified; E78.00 Pure hypercholesterolemia, unspecified; G47.30 Sleep apnea, unspecified; K21.9 Gastro-esophageal reflux disease without esophagitis; Z95.0 Presence of cardiac pacemaker; Z79.82 Long term (current) use of aspirin; Z79.899 Other long term (current) drug therapy ==